=== PATIENT | female | born 1955 | race Caucasian/White ===

== ENCOUNTER 2017-11-07 12:49 | Day surgery (SDC) | payer MEDICARE, MEDICAID ==
[2017-11-07 13:26] VITALS: BP 109/65
[2017-11-07] MEDS ORDERED: TETRACAINE HCL 150 DROP BTL RIGHTEYE ONE (13:38)
[2017-11-07] MEDS ORDERED: HYPROMELLOSE 150 DROP BTL RIGHTEYE ONE ×2 (13:41)
== END 2017-11-07 12:50 | disposition home or self-care (01) ==
LOC: AMB 12:49
PROVIDERS: ATTEND Ophthalmology
PROC: 08923ZZ Drainage of Right Anterior Chamber, Percutaneous Approach (ICD-10-PCS; principal; 2017-11-07)
DX: H40.013 Open angle with borderline findings, low risk, bilateral (principal); E11.9 Type 2 diabetes mellitus without complications; I10 Essential (primary) hypertension; E78.00 Pure hypercholesterolemia, unspecified; E03.9 Hypothyroidism, unspecified